=== PATIENT | female | born 1965 | race Caucasian/White ===

== ENCOUNTER 2017-04-22 11:18 | Emergency (ER) | payer BC, OTHER ==
[~2017-04-22] VITALS: Ht 167.6 cm; Wt 89.4 kg
[2017-04-22 11:21] VITALS: BP 190/107; PULSE 69; TEMP 36.6; O2SAT 99; Ht 167.6 cm; Wt 89.4 kg
--- NOTE | 2017-04-22 12:05 | EMERGENCY ROOM VISIT NOTE ---
History First contact with patient: 11:38 Chief Complaint: KNEEPAIN Stated Complaint: SWELLING TO RT KNEE-HURTS TO PRESSURE ON IT History of Present Illness The patient is a 51 year old female who presents to the Emergency Room via private vehicle with complaints of "swelling to right knee, hurts to put pressure on it". The patient states that yesterday she was descending a ladder , when she lost her balance, and slipped down causing twisting of her right knee. She denies injury to other areas. She is unable to extend her right knee , and notes swelling. She rates the pain as a 8/10. She is tried over-the- counter pain medication with minimal relief. She denies any numbness or tingling in the distal extremity. Review of Systems A complete 6-point Review of Systems was discussed with the patient, with pertinent positives and negatives listed in the History of Present Illness. All remaining Review of Systems questions can be considered negative unless otherwise specified. Past Medical/Surgical History No pertinent Family History Diabetes, HTN Social History Smoking Status: Never Smoker Pt. lives at home with children. Current/Historical Medications Scheduled PRN Oxycodone Ir (Roxicodone Ir), 1-2 TAB PO Q4H PRN for Pain Miscellaneous Medications Ibuprofen Tab (Advil), 200 MG PO Multiple Vitamins W/ Minerals (Centrum) Physical Exam Vital Signs Date Time Temp Pulse Resp B/P (MAP) Pulse Ox O2 Delivery O2 Flow Rate FiO2 04/22/17 11:21 36.6 69 20 190/107 99 Physical Exam VITAL SIGNS - Vital signs and nursing notes were reviewed. GENERAL -51-year-old female appearing her stated age who is in no acute distress. Communicates well with provider and answers questions appropriately. SKIN - Without rashes. There is no erythema to the right knee. There is slight edema noted prepatellar and infrapatellar. HEAD - NC/AT. EXTREMITIES - No clubbing or peripheral cyanosis. No pretibial edema present. Limited range of motion of the right knee secondary to tenderness. There is tenderness to palpation overlying the anterior knee joint. Edema noted. There is no excessive warmth. Distally she is intact neurovascularly. +5/5 strength noted in UE/LE bilaterally. Medical Decision & Procedures ER Provider Diagnostic Interpretation: RIGHT KNEE 3 VIEWS CLINICAL HISTORY: Right knee pain s/p fall Right trauma. Pain. COMPARISON: None. DISCUSSION: Moderate degenerative change medial joint compartment and patellofemoral joint. Joint effusion. No significant fat fluid level. No well-defined fracture or dislocation. There is no evidence for soft tissue swelling. IMPRESSION: Degenerative change. Joint effusion. No acute bony abnormality. The above report was generated using voice recognition software. It may contain grammatical, syntax or spelling errors. Electronically signed by: Manuel Beal M.D. 04/22/2017 12:09 PM Dictated Date/Time: 04/22/2017 12:08 PM Medical Decision Patient was seen and evaluated as above. After obtaining a thorough history and physical examination radiographs were obtained the knee, and ice packs were applied. Patient declined pain medication while here in the emergency department. X-ray results as above. No acute fracture or dislocation. There is a significant joint effusion which I believe to be atraumatic. No evidence of septic joint on examination. This is consistent with the trauma that she sustained yesterday. She'll be made nonweightbearing with crutches, and fitted with a knee immobilizer. She is to follow-up with orthopedics. She notes she had trouble sleeping, therefore I will provide her a short course of pain medication secondary to her injury. There are no red flags find the [facility] drug monitoring system. She was educated upon worrisome symptoms which to return, had questions or dish, and was discharged home in good condition. I suspect her symptoms are coming from likely ligamentous injury. In the evaluation and treatment of this patient, the following differential diagnoses were considered: Patellar Fracture, Tibial Plateau Fracture, Distal Femur Fracture, ACL Injury, PCL Injury, Collateral Ligament Injury, Pes Anserine Bursitis, Maisonneuve Fracture. Impression Primary Impression: Knee pain Departure Information Dispostion Home / Self-Care Condition GOOD Prescriptions Oxycodone Ir (Roxicodone Ir) 5 Mg Tab 1-2 TAB PO Q4H Y for Pain, #15 TAB For Initial Treatment Prov: Jamar Linn PA-C 04/22/17 Referrals No Doctor, Assigned (PCP) Nasim Wilcox M.D. Patient Instructions My [facility] Additional Instructions You have been treated in the Emergency Department for Knee Pain. You have received pain medicine in the emergency department which impairs your ability to operate a vehicle. It is illegal for you to drive after receiving these medicines. You have been prescribed Oxy IR to be used for pain control. This is a narcotic medication. You cannot drive or consume alcohol while on this medicine. This medicine should only be used for pain that cannot be controlled with over-the- counter pain medicines. For pain control, you can use the following etwa-usv-bdjoayl medicines (if >12 yo): - Regular strength (325mg/tab) Tylenol (acetaminophen) 2 tabs every 4-6 hours as needed. Do not exceed 12 tablets in a 24 hour period. Avoid taking more than 3 grams (3000 mg) of Tylenol per day. This includes any other sources of acetaminophen you may take on a regular basis. - Regular strength (200 mg/tab) Advil (ibuprofen) 1-2 tabs every 4-6 hours as needed. Do not exceed a dose of 3200 mg per day. If this is a recent injury (<24 hrs), ice can be applied to the area of pain for the first 3 days to help decrease pain and inflammation. Ice massages can be performed by freezing water in a paper cup, peeling back the cup to expose the ice and then massaging over the affected area. You have been provided the number for an Orthopaedic Surgeon. You should call this number as soon as possible to establish a follow-up visit from today's Emergency Department visit. Please follow up for your elevated blood pressure Keep the knee brace in place until cleared by Orthopedics. Use the crutches you have been provided to keep ALL weight off of the knee until weight bearing is tolerable. Return to the Emergency Department if your current symptoms worsen despite treatment course outlined above.
--- NOTE | 2017-04-22 12:10 | DIAGNOSTIC IMAGING REPORT ---
RIGHT KNEE 3 VIEWS CLINICAL HISTORY: Right knee pain s/p fall Right trauma. Pain. COMPARISON: None. DISCUSSION: Moderate degenerative change medial joint compartment and patellofemoral joint. Joint effusion. No significant fat fluid level. No well-defined fracture or dislocation. There is no evidence for soft tissue swelling. IMPRESSION: Degenerative change. Joint effusion. No acute bony abnormality. The above report was generated using voice recognition software. It may contain grammatical, syntax or spelling errors. Electronically signed by: Manuel Beal M.D. 04/22/2017 12:09 PM Dictated Date/Time: 04/22/2017 12:08 PM
[2017-04-22] MEDS ORDERED: MULTCHW3 (12:23)
[2017-04-22] MEDS ORDERED: IBUP-103 PO (12:23)
[2017-04-22] MEDS ORDERED: OXYC1TAB3 PO (12:33)
== END 2017-04-22 12:42 | disposition home or self-care (01) ==
LOC: C.EDB 11:20 → C.EDD 12:42
DX: M25.561 Pain in right knee (principal); W11.XXXA Fall on and from ladder, initial encounter; Z83.3 Family history of diabetes mellitus; Z82.49 Family history of ischemic heart disease and other diseases of the circulatory system